=== PATIENT | male | born 1980 | race African-American/Black ===

== ENCOUNTER 2017-05-21 10:29 | Emergency (ER) | payer MEDICARE, MEDICAID ==
[~2017-05-21] VITALS: Ht 180.3 cm; Wt 75.0 kg
[2017-05-21 10:39] VITALS: BP 132/90
[2017-05-21] MEDS ORDERED: BACITRACIN ZINC OINT UDPKT TOP ONE (12:00)
== END 2017-05-21 12:14 | disposition home or self-care (01) ==
LOC: ER 12:06
DX: Z48.02 Encounter for removal of sutures (principal); G82.20 Paraplegia, unspecified; X58.XXXD Exposure to other specified factors, subsequent encounter
CPT/HCPCS: 99283